=== PATIENT | female | born 1995 | race Caucasian/White ===

== ENCOUNTER 2023-03-06 20:17 | Emergency (ER) | payer SELFPAY ==
[~2023-03-06] VITALS: Ht 167.6 cm; Wt 86.2 kg
[2023-03-06 20:58] VITALS: BP 127/69; TEMP 98.5
[2023-03-06] MEDS ORDERED: CYCL5TAB PO (21:22)
[2023-03-06] MEDS ORDERED: IBUPROFEN 400 MG TABLET ONE (21:27)
[2023-03-06] MEDS ORDERED: CYCLOBENZAPRINE 10 MG TABLET ONE (21:27)
[2023-03-06] MEDS: IBUPROFEN 400 MG TABLET PO ONE (21:29)
[2023-03-06] MEDS: CYCLOBENZAPRINE 10 MG TABLET PO ONE (21:29)
[2023-03-06 21:30] VITALS: O2SAT 97
== END 2023-03-06 21:31 | disposition home or self-care (01) ==
LOC: ER 20:19
DX: M54.2 Cervicalgia (principal); Z98.890 Other specified postprocedural states; Z60.2 Problems related to living alone

== ENCOUNTER 2023-06-11 22:11 | Emergency (ER) | payer MEDICAID, OTHER ==
[~2023-06-11] VITALS: Ht 165.1 cm; Wt 86.2 kg
[~2023-06-11 22:11] MED LIST: CYCL5TAB PO
[2023-06-11] MEDS ORDERED: diphenhydrAMINE HCL 25 MG CAPSULE ONE (22:27)
[2023-06-11] MEDS ORDERED: diphenhydrAMINE HCL 25 MG CAPSULE PO ONE (22:30)
[2023-06-11 22:55] VITALS: BP 115/89; TEMP 98.1; O2SAT 98
== END 2023-06-11 22:56 | disposition home or self-care (01) ==
LOC: ER 22:13
DX: T78.40XA Allergy, unspecified, initial encounter (principal); Z90.89 Acquired absence of other organs; Z60.2 Problems related to living alone; X58.XXXA Exposure to other specified factors, initial encounter
CPT/HCPCS: 99282; Q0163

== ENCOUNTER 2024-09-20 04:24 | Emergency (ER) | payer MEDICAID, OTHER ==
[~2024-09-20] VITALS: Ht 167.6 cm; Wt 86.2 kg
[2024-09-20 05:55] LABS: BASOPHILS # (AUTO) 0.1 K/uL (0.0-0.2); BASOPHILS % (AUTO) 0.7 % (0.0-2.0); EOSINOPHILS # (AUTO) 0.1 K/uL (0.0-0.7); EOSINOPHILS % (AUTO) 1.4 % (0.0-6.0); HEMATOCRIT 44 % (33-45); HEMOGLOBIN 14.8 g/dL (11.5-14.8); LYMPHOCYTES # (AUTO) 2.6 K/uL (0.8-4.8); MEAN CORPUSCULAR HEMOGLOBIN 31 PG (26.0-33.0); MEAN CORPUSCULAR HGB CONC 34 g/dl (31.0-36.0); MEAN CORPUSCULAR VOLUME 90 fL (82-100); MONOCYTES # (AUTO) 0.5 K/uL (0.1-1.30); MONOCYTES % (AUTO) 6.9 % (2.0-12.0); NEUTROPHILS # (AUTO) 4.4 K/uL (1.8-8.9); PLATELET COUNT (AUTO) 323 K/uL (150-450); RED BLOOD CELL COUNT(AUTO) 4.82 MIL/uL (4.0-5.2); RED CELL DISTRIBUTION WIDTH 13.7 % (11.5-15.0); WHITE BLOOD COUNT (AUTO) 7.8 K/uL (4.3-11.0)
[2024-09-20 06:17] LABS: AMPHETAMINE, URINE NEGATIVE (NEGATIVE); BARBITURATE, URINE NEGATIVE (NEGATIVE); BENZODIAZEPINE, URINE NEGATIVE (NEGATIVE); CANNABINOID, URINE NEGATIVE (NEGATIVE); COCCAINE, URINE NEGATIVE (NEGATIVE); OPIATE, URINE NEGATIVE (NEGATIVE); PHENCYCLIDINE SCREEN,URINE NEGATIVE (NEGATIVE)
[2024-09-20 06:28] LABS: APPEARANCE,URINE CLEAR (CLEAR); BILIRUBIN,URINE NEGATIVE (NEGATIVE); BLOOD, URINE NEGATIVE Ery/uL (NEGATIVE); COLOR,URINE YELLOW (YELLOW); KETONES,URINE NEGATIVE (NEGATIVE); LEUKOCYTE ESTERASE ,URINE NEGATIVE (NEGATIVE); NITRITE, URINE NEGATIVE (NEGATIVE); PH,URINE 5.5 (5.0-8.0); PREGNANCY TEST URINE QUAL NEGATIVE (NEGATIVE); PROTEIN,URINE NEGATIVE (NEGATIVE); UGLUCOSE NEGATIVE (NEGATIVE); UROBILINOGEN,URINE 0.2 EU/dL (0.2)
[2024-09-20 06:32] LABS: ALBUMIN 3.4 g/dL (3.4-5.0); BILIRUBIN,TOTAL 0.2 mg/dL (0.2-1.0); CALCIUM, SERUM 9.7 mg/dL (8.5-10.1); POTASSIUM 4.3 mmol/L (3.5-5.1); TOTAL PROTEIN, SERUM 7.5 g/dL (6.4-8.2)
[2024-09-20 07:10] VITALS: BP 140/89; TEMP 98.5; O2SAT 98
== END 2024-09-20 07:10 | disposition home or self-care (01) ==
LOC: ER 04:25
DX: R10.9 Unspecified abdominal pain (principal); F17.290 Nicotine dependence, other tobacco product, uncomplicated; Z60.2 Problems related to living alone; Z79.899 Other long term (current) drug therapy
CPT/HCPCS: 36415; 80053-TC; 84703-TC; 85025-TC

== ENCOUNTER 2024-11-22 17:31 | Emergency (ER) | payer OTHER ==
[~2024-11-22] VITALS: Ht 165.1 cm; Wt 86.2 kg
[2024-11-22 18:09] VITALS: BP 125/89; TEMP 98.1
[2024-11-22] MEDS ORDERED: BENZ85AE TP (18:23)
[2024-11-22] MEDS ORDERED: IBUP-1953 PO (18:23)
[2024-11-22] MEDS ORDERED: EMOL113C2 TP (18:23)
[2024-11-22 19:00] VITALS: O2SAT 98
== END 2024-11-22 19:02 | disposition home or self-care (01) ==
LOC: ER 17:33
DX: L55.9 Sunburn, unspecified (principal); F17.290 Nicotine dependence, other tobacco product, uncomplicated; R21 Rash and other nonspecific skin eruption; Z60.2 Problems related to living alone; Z79.899 Other long term (current) drug therapy

== ENCOUNTER 2024-11-26 22:43 | Emergency (ER) | payer OTHER ==
[~2024-11-26] VITALS: Ht 167.6 cm; Wt 86.2 kg
[~2024-11-26 22:43] MED LIST changes: +BENZ85AE TP; +EMOL113C2 TP; +IBUP-1953 PO
[2024-11-26] MEDS ORDERED: IBUP-1490 PO (23:21)
[2024-11-26] MEDS ORDERED: MAG HYDROX/AL HYDROX/SIMETH 30 ML UDC ONE (23:26)
[2024-11-26] MEDS ORDERED: LIDOCAINE VISCOUS 2% UD 15 ML UDC ONE (23:26)
[2024-11-26] MEDS ORDERED: IBUPROFEN 600 MG TABLET ONE (23:27)
[2024-11-26] MEDS: MAG HYDROX/AL HYDROX/SIMETH 30 ML UDC PO ONE (23:28)
[2024-11-26] MEDS: LIDOCAINE VISCOUS 2% UD 15 ML UDC MM ONE (23:28)
[2024-11-26] MEDS: IBUPROFEN 600 MG TABLET PO ONE (23:29)
[2024-11-26 23:37] VITALS: BP 132/70; TEMP 98.4; O2SAT 99
== END 2024-11-26 23:38 | disposition home or self-care (01) ==
LOC: ER 22:48
DX: M94.0 Chondrocostal junction syndrome [Tietze] (principal); F17.290 Nicotine dependence, other tobacco product, uncomplicated; Z60.2 Problems related to living alone; Z79.899 Other long term (current) drug therapy

== ENCOUNTER 2025-04-08 15:06 | Emergency (ER) | payer OTHER ==
[~2025-04-08] VITALS: Ht 167.6 cm; Wt 119.8 kg
[~2025-04-08 15:06] MED LIST changes: +IBUP-1490 PO
[2025-04-08 15:11] VITALS: BP 136/87; TEMP 98.1
[2025-04-08] MEDS ORDERED: METH-647 PO (15:23)
[2025-04-08] MEDS ORDERED: IBUPROFEN 400 MG TABLET ONE (15:29)
[2025-04-08 15:32] VITALS: O2SAT 96
[2025-04-08] MEDS: IBUPROFEN 400 MG TABLET PO ONE (15:32)
== END 2025-04-08 15:33 | disposition home or self-care (01) ==
LOC: ER 15:06
DX: R51.9 Headache, unspecified (principal); M54.2 Cervicalgia; R03.0 Elevated blood-pressure reading, without diagnosis of hypertension; F17.290 Nicotine dependence, other tobacco product, uncomplicated; V89.2XXA Person injured in unspecified motor-vehicle accident, traffic, initial encounter; Y93.89 Activity, other specified; Y92.410 Unspecified street and highway as the place of occurrence of the external cause; Y99.9 Unspecified external cause status